=== PATIENT | male | born 1960 | race Caucasian/White ===

== ENCOUNTER 2023-11-02 11:01 | Emergency (ER) | payer MEDICARE, SELFPAY ==
[2023-11-02 11:13] VITALS: BP 152/71; PULSE 60; RESP 18; TEMP 36.7; O2SAT 99
[2023-11-02 11:15] VITALS: BP 152/71; PULSE 60; RESP 18; TEMP 36.7; O2SAT 99
--- NOTE | 2023-11-02 11:32 | ED.GENADULT ---
HPI - General Adult General Chief complaint: Upper Respiratory Infection Stated complaint: Diarrhea,Chest Cold/ Work Release Time Seen by Provider: 11/02/23 11:19 Source: patient and RN notes reviewed Mode of arrival: ambulatory Limitations: no limitations History of Present Illness HPI narrative: Patient presents today requesting a return to work note. Three days ago he developed a headache with subjective fever, cough, congestion, rhinorrhea. Two days ago he developed diarrhea that was fairly constant. These symptoms have resolved except the rhinorrhea. 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 His employer is requiring a note. He has tried some Sinus medicine and Benadryl which have been helpful. He is eating and drinking appropriately. Denies nausea vomiting, abdominal pain, flank pain, urinary symptoms. Related Data Home Medications Medication Instructions Recorded Confirmed No Home Medications 11/02/23 11/02/23 Allergies Allergy/AdvReac Type Severity Reaction Status Date / Time No Known Allergies Allergy Verified 11/02/23 11:14 Review of Systems Review of Systems: CONSTITUTIONAL: Denies body aches, chills, or sweats.+ subjective fever EYES: Denies visual changes, redness, or discharge. ENT: Denies sore throat, or otalgia.+ rhinorrhea congestion CARDIOVASCULAR: Denies chest pain, palpitations, or edema. RESPIRATORY: Denies dyspnea.+ cough GASTROINTESTINAL: Denies abdominal pain, nausea, vomiting. + diarrhea GENITOURINARY: Denies dysuria or hematuria. SKIN: Denies rash, itching, or wounds. MUSCULOSKELETAL: Denies back pain, joint pain, or myalgia. NEUROLOGIC: Denies numbness, tingling, or weakness.+ headache PSYCH: Denies depression or anxiety. PMFSH Comments At time of signature, I have reviewed and agree with nursing past medical, surgical, social and family history unless otherwise noted. Please see nursing chart for further information. There is no relevant family history pertinent to the presenting complaint Exam Narrative: GENERAL: Well-appearing, well-nourished, and in no acute distress. HEAD: Normocephalic, atraumatic. EYES: EOMI. No redness or drainage. Conjunctivae normal. ENT: Mucous membranes pink and moist. Nares clear. No rhinorrhea. TMs normal bilaterally. Throat normal. Uvula midline. NECK: Normal AROM. Supple. No lymphadenopathy. CHEST: No respiratory distress. Clear to auscultation. HEART: Regular rate and rhythm. No murmur appreciated. ABDOMEN: Soft, nontender, nondistended, normal active bowel sounds. EXTREMITIES: Normal range of motion. No edema. SKIN: Warm, dry, no rash. Capillary refill normal. Normal skin turgor. NEURO: No focal deficits. Alert and oriented x3. Gait steady. PSYCH: Normal affect. No signs of depression or anxiety. Course Course Level of Care: Express Care Visit Vital Signs Vital signs: Vital Signs Temperature 98.0 F 11/02/23 11:13 Pulse Rate 60 11/02/23 11:13 Respiratory Rate 18 11/02/23 11:13 Blood Pressure 152/71 H 11/02/23 11:13 Pulse Oximetry 99 11/02/23 11:13 Oxygen Delivery Room Air 11/02/23 11:13 Temperature 98.0 F 11/02/23 11:15 Pulse Rate 60 11/02/23 11:15 Respiratory Rate 18 11/02/23 11:15 Blood Pressure 130/72 11/02/23 11:42 Pulse Oximetry 99 11/02/23 11:15 Oxygen Delivery Room Air 11/02/23 11:15 Reviewed Medical Decision Making MDM Narrative Medical decision making narrative: Patient's symptoms have almost fully resolved, aside from the rhinorrhea. Work note provided. Anticipatory guidance given. Differential Diagnosis Differential Diagnosis: URI, viral syndrome, bronchitis, gastroenteritis, food poisoning, colitis Vital Signs Vital Signs: Vital Signs Temperature 98.0 F 11/02/23 11:13 Pulse Rate 60 11/02/23 11:13 Respiratory Rate 18 11/02/23 11:13 Blood Pressure 152/71 H 11/02/23 11:
[2023-11-02 11:42] VITALS: BP 130/72
== END 2023-11-02 11:42 | disposition home or self-care (01) ==
PROVIDERS: Emergency Provider Nurse Practitioner
DX: J00 Acute nasopharyngitis [common cold] (principal); R19.7 Diarrhea, unspecified; Z98.84 Bariatric surgery status
CPT/HCPCS: 99202; G0463